=== PATIENT | female | born 1960 | race Caucasian/White ===

== ENCOUNTER → 2017-12-13 | Outpatient (CLI) | payer BC, OTHER ==
[~2017-12-13] MED LIST: CO Q-10100 MG PO; FISH OIL 1,0001 EACH PO; GLUCOSAMINE CH1 EAC2 PO; MULTIVITAMINS PO; SERTRALINE HCL25 M1 PO; VITAMIN B-12500 MCG PO
== END ==
LOC: RAD 07:50
DX: Z12.31 Encounter for screening mammogram for malignant neoplasm of breast (principal)

== ENCOUNTER → 2017-12-24 | Outpatient (CLI) | payer BC, OTHER | LOC: ULTRA 08:58 | DX: N63.10 Unspecified lump in the right breast, unspecified quadrant (principal); N63.20 Unspecified lump in the left breast, unspecified quadrant ==

== ENCOUNTER → 2018-12-26 | Outpatient (CLI) | payer BC, OTHER | LOC: RAD 02:01 | DX: Z12.31 Encounter for screening mammogram for malignant neoplasm of breast (principal) ==

== ENCOUNTER → 2020-05-21 | Outpatient (CLI) | payer OTHER | LOC: RAD 10:35 | PROVIDERS: ATTEND Obstetrics & Gynecology | DX: Z12.31 Encounter for screening mammogram for malignant neoplasm of breast (principal); N64.89 Other specified disorders of breast ==

== ENCOUNTER → 2021-06-16 | Outpatient (CLI) | payer OTHER | LOC: RAD 08:47 | PROVIDERS: ATTEND Obstetrics & Gynecology | DX: Z12.31 Encounter for screening mammogram for malignant neoplasm of breast (principal) ==